=== PATIENT | male | born 1960 | race Caucasian/White ===

== ENCOUNTER → 2020-10-17 | Outpatient (CLI) | payer OTHER ==
[~2020-10-17] MED LIST: ASPIRIN CHEWABL81 MG PO; BREO ELLIPTA 11 EACH INH; CHANTIX1 MG PO; CLARITIN10 MG PO; FISH OIL 1,0001 EACH PO; FLONASE 0.05% N16 GM; GLUCOPHAGE500 MG PO; LIPITOR TAB 1010 MG PO; NEURONTIN 300300 MG PO; NORVASC2.5 MG PO; PREDFORTE OP SUS5 ML OU; PRINIVIL20 MG PO; RANEXA500 MG PO; RANITIDINE HCL150 MG PO
== END ==
LOC: HEART 5 14:12
DX: R00.2 Palpitations (principal)

== ENCOUNTER → 2020-10-26 | Outpatient (CLI) | payer OTHER ==
[2020-10-26 10:24] LABS: HEMOGLOBIN 15.2 gm/dl (14.0-17.5); RED BLOOD COUNT 5.02 M/UL (4.20-5.50); WHITE BLOOD COUNT 7.9 K/UL (4.5-11.0)
[2020-10-26 10:43] LABS: BUN/CREATININE RATIO 12 (0-10)
== END ==
LOC: CT 09:57
PROVIDERS: Internal Medicine Hematology & Oncology
DX: C34.12 Malignant neoplasm of upper lobe, left bronchus or lung (principal)
CPT/HCPCS: 36415; 71260; 80053; 85027; Q9963

== ENCOUNTER 2021-10-28 16:31 | Observation (INO) | payer OTHER ==
[~2021-10-28] VITALS: Ht 185.4 cm; Wt 98.9 kg
[2021-10-28 17:19] LABS: HEMOGLOBIN 15.3 gm/dl (14.0-17.5); RED BLOOD COUNT 4.97 M/UL (4.20-5.50); WHITE BLOOD COUNT 11.3 K/UL (4.5-11.0)
[2021-10-28 18:10] LABS: BUN/CREATININE RATIO 17 (0-10)
[2021-10-29] MEDS ORDERED: ISOSORBIDE MONO30 MG PO (01:13)
[2021-10-29] MEDS ORDERED: FARXIGA5 MG PO (01:14)
[2021-10-29] MEDS ORDERED: METOPROLOL TART25 MG PO (01:15)
[2021-10-29] MEDS ORDERED: AMLODIPINE BESY10 MG PO (01:17)
[2021-10-29] MEDS ORDERED: LISINOPRIL20 MG PO (01:17)
[2021-10-29] MEDS ORDERED: PROTONIX40 MG PO (01:18)
[2021-10-29] MEDS ORDERED: CRESTOR20 MG PO (01:18)
[2021-10-29] MEDS ORDERED: FENOFIBRATE145 MG PO (01:19)
[2021-10-29] MEDS ORDERED: CLARITIN10 M2 PO (01:20)
[2021-10-29] MEDS ORDERED: MYCOSTATIN100000 UTS PO (01:24)
[2021-10-29] MEDS ORDERED: VENTOLIN/PROVE0.5 ML INH (01:31)
[2021-10-29] MEDS ORDERED: GLUCOPHAGE XR500 M1 PO (01:34)
[2021-10-29 05:07] LABS: BUN/CREATININE RATIO 13 (0-10)
[2021-10-30 05:07] LABS: BUN/CREATININE RATIO 13 (0-10)
[2021-10-30 05:23] LABS: HEMOGLOBIN 12.5 gm/dl (14.0-17.5); RED BLOOD COUNT 4.13 M/UL (4.20-5.50); WHITE BLOOD COUNT 6.1 K/UL (4.5-11.0)
[2021-10-30] MEDS ORDERED: MECLIZINE HCL25 MG PO (14:49)
== END 2021-10-30 15:41 | disposition home or self-care (01) ==
LOC: ER1 16:31 → CDU 22:18 → M/S 22:18 → PROG CARE 22:18 → M/S 10-29 21:25
PROVIDERS: Emergency Medicine; Internal Medicine; ADMIT Internal Medicine
DX: H81.10 Benign paroxysmal vertigo, unspecified ear (principal); Z20.822 Contact with and (suspected) exposure to COVID-19; J44.9 Chronic obstructive pulmonary disease, unspecified; I25.10 Atherosclerotic heart disease of native coronary artery without angina pectoris; I10 Essential (primary) hypertension; E11.9 Type 2 diabetes mellitus without complications; E78.5 Hyperlipidemia, unspecified; H93.12 Tinnitus, left ear; E86.0 Dehydration; E87.1 Hypo-osmolality and hyponatremia; I25.2 Old myocardial infarction; Z85.118 Personal history of other malignant neoplasm of bronchus and lung; Z87.891 Personal history of nicotine dependence; Z79.84 Long term (current) use of oral hypoglycemic drugs; Z79.899 Other long term (current) drug therapy
CPT/HCPCS: ECHO; 36415; 70450; 70496; 70498; 70551; 71045; 80048; 80053; 80061; 81001; 82550; 82553; 82607; 82746; 82962; 83036; 83735; 83880; 84100; 84439; 84443; 84484; 84550; 85025; 85027; 85610; 85730; 92610; 93005; 93306; 94640; 94664; 94760; 96372; 96375; 96376; 97116-GP-CQ; 97161; 97166; 99285; G0378; J1650; J2405; J3475; Q9967; U0002

== ENCOUNTER → 2021-12-25 | Day surgery (SDC) | payer OTHER ==
[~2021-12-25] MED LIST changes: +AMLODIPINE BESY10 MG PO; +CLARITIN10 M2 PO; +CRESTOR20 MG PO; +FARXIGA5 MG PO; +FENOFIBRATE145 MG PO; +GLUCOPHAGE XR500 M1 PO; +ISOSORBIDE MONO30 MG PO; +LISINOPRIL20 MG PO; +MECLIZINE HCL25 MG PO; +METOPROLOL TART25 MG PO; +MYCOSTATIN100000 UTS PO; +PROTONIX40 MG PO; +VENTOLIN/PROVE0.5 ML INH
== END | disposition home or self-care (01) ==
LOC: OR 06:52
DX: Z12.11 Encounter for screening for malignant neoplasm of colon (principal); K59.09 Other constipation; K57.30 Diverticulosis of large intestine without perforation or abscess without bleeding; K64.0 First degree hemorrhoids; K64.1 Second degree hemorrhoids; E66.3 Overweight; I10 Essential (primary) hypertension; E11.9 Type 2 diabetes mellitus without complications; Z80.0 Family history of malignant neoplasm of digestive organs
CPT/HCPCS: 82962; J2704; J7040